=== PATIENT | female | born 1945 | race Caucasian/White ===

== ENCOUNTER → 2018-04-19 | Outpatient (CLI) | payer MEDICARE, BC ==
[2018-04-19 14:52] VITALS: PULSE 67; RESP 14; TEMP 97.4; BMI 31.3
--- NOTE | 2018-04-19 15:28 | P.GSHP ---
History of Present Illness H&P Date: 04/19/18 The patient is a 73-year-old white female who presents for evaluation secondary to a stereotactic core biopsy of the right breast which revealed a grade 1 invasive ductal carcinoma. The patient had a routine screening mammogram performed on 03/27/2018. At that time there was some grouped calcifications which were felt to possibly as being associated with a density increasing in size from a comparison study. She subsequently had an additional mammogram which revealed a 7 mm area with internal pleomorphic calcifications in the upper outer quadrant of the right breast and an ultrasound performed which did not show any specific nodule of concern. Based on the radiographic findings underwent a stereotactic core biopsy on 04/11/2018. The pathology from this revealed a grade 1 invasive ductal carcinoma. The patient herself has not felt any masses or nodules in her breasts. She has no nipple discharge or skin changes. She has no history of any trauma or infection in the breast. Family history: 1. mother: bilateral breast cancer first dx. at 65 2. maternal first cousin: breast cancer in her 60's 3. maternal first cousin: lung cancer 4. daughter: cervical cancer Hormonal History: menarche: 15 : 5, live births 3, first at 21, breast fed: no menopause: 58 BCP: 6 years hormones: 4 years ( took bio-identical) Past surgical history: 1. Back 2. Bilateral carpal tunnel 3. Bilateral breast biopsy in operating room at [facility] 4. stero biopsy of the right breast Past medical history: 1. Spinal stenosis Social History: smoke: none alcohol: none drugs: none - Constitutional Constitutional: Denies chills, Denies fever - EENT Comment: wears glasses, cataracts bilateral Eyes: bilateral decreased vision Ears: bilateral: tinnitus (right worse than left), deny: decreased hearing Ears, nose, mouth and throat: Denies headache, Denies sore throat - Breasts Breasts: bilateral: as per HPI - Cardiovascular Comment: High cholesterol Cardiovascular: Reports high blood pressure - Respiratory Respiratory: Denies cough, Denies 7 - Gastrointestinal Gastrointestinal: Reports constipation - Genitourinary (Female) Comment: UTI recently diagnosed Genitourinary: Denies dysuria, Denies hematuria - Menstruation Menstruation: Reports postmenopausal - Musculoskeletal Comment: arthritis - Integumentary Integumentary: Denies pruritus, Denies rash - Neurological Neurological: Denies numbness, Denies weakness - Psychiatric Psychiatric: Denies anxiety, Denies depression - Endocrine Endocrine: Denies fatigue, Denies weight change - Hematologic/Lymphatic Comment: none - Allergic/Immunologic Allergic/Immunologic: Reports seasonal allergies Past Medical History Past Medical History: Hyperlipidemia, Hypertension, Osteoarthritis (OA) History of Any Multi-Drug Resistant Organisms: None Reported Past Surgical History: Back Surgery, Breast Surgery, Orthopedic Surgery Additional Past Surgical History / Comment(s): LUMBAR SURGERY. BILATERAL BREAST BX (NEG). BILATERAL CARPAL TUNNEL. Past Anesthesia/Blood Transfusion Reactions: Motion Sickness Smoking Status: Never smoker Past Alcohol Use History: None Reported Past Drug Use History: None Reported Medications and Allergies Home Medications Medication Instructions Recorded Confirmed Type Alpha Lipoc Acid 1 tab PO DAILY 05/19/16 History Aspirin [Adult Low Dose Aspirin EC] 81 mg PO DAILY 05/19/16 05/19/16 History Biotin Unknown Dose 400 mg PO DAILY 05/19/16 History Cholecalciferol [Vitamin D3] 2,000 unit PO DAILY 05/19/16 05/19/16 History L.acidoph,Paracasei, B.lactis 1 tab PO DAILY 05/19/16 05/19/16 History [Probiotic] Lisinopril 10 mg PO HS 05/19/16 05/19/16 History [place]-3 Fatty Acids [[place]-3] 1,000 mg PO DAILY 05/19/16 05/19/16 History Polyphenol Dose Unknown 300 mg PO DAILY 05/19/16 History Pravastatin Sodium 40 mg PO HS 05/19/16 05/19/16 History Ubidecarenone [Co Q-10] 200 mg PO DAILY 05/19/16 05/19/16 History B Complex-Vit C-Vit E-Zinc [Z-Bec] 1 tab PO DAILY 04/19/18 04/19/18 History Loratadine [Claritin] 10 mg PO DAILY PRN 04/19/18 04/19/18 History Allergies Allergy/AdvReac Type Severity Reaction Status Date / Time codeine Allergy Rash/Hives Verified 04/19/18 14:38 Surgical - Exam - General well developed, well nourished, no distress - Eyes normal ocular movement - ENT no hearing loss, no congestion - Neck no masses, trachea midline - Respiratory normal expansion, normal respiratory effort, clear to auscultation - Cardiovascular Rhythm: regular Heart Sounds: normal: S1, S2 - Abdomen Abdomen: soft, non tender, no guarding, no rigid, no rebound - Integumentary no rash, no abnormal pigmentation - Neurologic no disoriented, no combative - Musculoskeletal normal gait, normal posture - Psychiatric oriented to time, oriented to person, oriented to place, speech is normal, memory intact Breast examination: Right breast: Multi-positional exam no dominant masses or nodules of concern, mild ecchymosis related to recent stereotactic core biopsy Right axilla: No adenopathy of concern Left breast: Multi-positional examination no dominant masses or notches of concern Left axilla: No adenopathy of concern Results Radiographic reports reviewed Assessment and Plan Assessment: Impression: 1. Right breast 7 mm invasive ductal carcinoma 2. Hypertension 3. High cholesterol 4. Recent urinary tract infection 5. spinal stenosis Plan: 1. Right breast needle localization lumpectomy sentinel node injection, sentinel node biopsy possible axillary node dissection 2. Recent urinary tract infection will repeat UA next week 3. Medical management of medical conditions Risk and benefits of surgical intervention have been discussed with the patient. Options including lumpectomy plus or minus radiation therapy as well as mastectomy plus or minus reconstruction have been discussed with the patient. [place] node I Apsey plus or minus axillary node dissection with risk and benefits have been discussed with the patient. The patient understands and wishes to proceed with needle localization lumpectomy, sentinel node injection, sentinel node biopsy possible axillary node dissection. She understands that if margins are positive or the sentinel node is positive on permanent section and it may be necessary to go back for repeat surgical resection. Cc: Dr. Shah
== END | disposition home or self-care (01) ==
LOC: WWCWWP 14:29
PROVIDERS: ATTEND Surgery
DX: Z53.9 Procedure and treatment not carried out, unspecified reason (principal)

== ENCOUNTER → 2018-05-14 | Day surgery (SDC) | payer MEDICARE, BC ==
[2018-05-07 14:51] VITALS: BMI 30.9
[~2018-05-14] MED LIST: ALPRAZolam 0.25 MG TAB PO ONE; DEXAMETHASONE SOD PHOSPHATE 10 MG/ML 1 ML VIAL IV ONE; HEPARIN SODIUM,PORCINE 5,000 UNIT/ML 1 ML VIAL SQ ONE; HYDROmorphone 1 MG/ML 1 ML SYRINGE IVP PRN; LACTATED RINGERS 1,000 ML IV ONE; LIDOCAINE 1% 20 ML VIAL (10MG/ML) FOR IV START INTRADERMA PRN; LIDOCAINE 1% INJ 10MG/ML (20 ML MDV) ONE; LIDOCAINE 1% INJ 10MG/ML (20 ML MDV) SQ ONE; MIDAZOLAM 2 MG/2 ML VIAL IV PRN; MIDAZOLAM 2 MG/2 ML VIAL ONE; ONDANSETRON 4 MG/2 ML VIAL IVP ONE; PROPOFOL 10 MG/ML 20 ML VIAL IV ONE; Pre Op ABX Message 1 EACH MISC MISCELLANE ONE; ROPIVACAINE 5 MG/ML 30 ML VIAL ONE; SCOPOLAMINE 1.5MG/72HR PATCH TRANSDERM ONE; SODIUM BICARB 4% 5 ML VIAL (0.48 MEQ/ML) MISCELLANE ONE; SUCCINYLCHOLINE CHLORIDE VIAL 200 MG/10 ML VIAL IV ONE; ePHEDrine SULFATE/0.9% NACL/PF 50 MG/5 ML SYRINGE IV ONE; fentaNYL (PF) 50 MCG/ML 2 ML AMP ONE
[2018-05-14] MEDS: LACTATED RINGERS 1,000 ML IV SCH ×2 (10:54→13:33)
--- NOTE | 2018-05-14 13:09 | NM ---
EXAMINATION TYPE: NM sentinel node injection DATE OF EXAM: 05/14/2018 COMPARISON: NONE HISTORY: Right breast cancer TECHNIQUE AND FINDINGS: The procedure of sentinel lymph node injection was explained to the patient. The benefits, alternatives, and risks were discussed. An informed consent was then obtained. Overlying skin is cleaned with sterile alcohol. Following this, 483 uCi [id number] Tilmanocept was inject ed in the upper outer aspect of the right nipple intradermally. The patient tolerated the procedure well without any immediate complication. The patient was kept in the radiology department for short stay after the procedure and then taken to surgery for surgical p rocedure what is presumed intraoperative gamma probe will be used for sentinel lymph node detection. IMPRESSION: Right breast radiotracer injection for sentinel node localization as above.
--- NOTE | 2018-05-14 13:14 | P.ONQ ---
Anesthesiology Proc Note - PNB - Peripheral Nerve Block Performed Right Other (see comment) Single Time Out Performed: Yes (pec1 and pec2) Indication: Acute Post-Operative Pain, Requested by physician Sedation Type: Sedate with meaningful contact maintained Preparation: Sterile Prep Position: Supine Needle Size: 50mm (2") Needle Gauge: 21 Technique: Ultrasound Injectate: 0.5% Ropivacaine (see comment for volume) (ropi .5% 10cc each) Blood Aspirated: No Pain Paresthesia on Injection Noted: No Resistance on Injection: Normal Events: Uneventful and Well Tolerated
--- NOTE | 2018-05-14 13:18 | P.NAPBC ---
NAPBC Queries - NAPBC Queries Was patient's case review presented at [facility] tumor board? If no, comment.: Yes Was patient's pathology reviewed at [facility]? If no, comment.: Yes Was breast conservation surgery offered? If no, comment.: Yes Was sentinel node biopsy offered? If no, comment.: Yes Was diagnosis confirmed by percutaneous core biopsy? If no, comment.: Yes If mastectomy patient, was a preop referral to a reconstructive surgeon offered? : Yes
--- NOTE | 2018-05-14 15:47 | MM ---
EXAMINATION TYPE: MG pre op needle loc RT, MG surgical specimen RT DATE OF EXAM: 05/14/2018 COMPARISON: Outside images of 03/27/2018 through 04/11/2018. CLINICAL HISTORY: Right breast cancer with request for preoperative needle localization. TECHNIQUE: Needle localization with wire placement and surgical excision of the biopsy proven right breast carcinoma marked by the top patchy biopsy marker in the upper outer quadrant of the right breast. FINDINGS: The procedure of needle localization with wire placement and than surgical excision was explained to the patient. Benefits, alternatives, and risks were discussed. An informed consent was then obtained. Preprocedural timeout was performed. The shortest pathway for procedure was chosen. Shortest pathway was lateral to medial approach. The overlying skin was prepped and draped in usual sterile fashion. 10 cc of lidocaine buffered with bicarbonate was used as anesthetic into the skin and subcutaneous tissue up to the level of area of concern. A 7 cm needle was used. It was placed via a lateral to medial approach under mammographic guidance. Subsequent 90 degrees mammogram show the needle to be in satisfactory position relative to the targeted area. At this point, wire was placed and the needle was withdrawn. The wire was fixed to patient's skin. Images were marked for surgeon. The patient tolerated the procedure well without any immediate complication. The patient was kept in the radiology department for short stay after the procedure and then taken to surgery for surgical excision. Targeted biopsy marker and wire are identified in specimen mammogram. The patient was kept in hospital for short stay after the procedure and then discharged home in stable condition. IMPRESSION: Successful, uncomplicated needle localization with wire placement and surgical excision of targeted biopsy marker representing the biopsy-proven right breast carcinoma, full pathology results to follow. Pathology Results: Malignant A. RIGHT BREAST, ORIENTED LUMPECTOMY: Focal residual 0.6 x 0.4 x 0.5 cm in greatest dimension infiltrating well differentiated (grade 1) infiltrating ductal carcinoma (tubular carcinoma). Residual carcinoma, adjacent to prior biopsy site measures 0.7 mm from the black inked superior soft tissue margin of resection. See Surgical Pathology Cancer Case Summary. B. SENTINEL LYMPH NODE #1, BIOPSY: Lymph node negative for metastatic adenocarcinoma by H+E as well as appropriately controlled immunohistochemical studies for Cytokeratin 7 and ALBERT. C. AXILLARY CONTENTS, DISSECTION: Benign fibroadipose tissue. D. SENTINEL LYMPH NODE #2, BIOPSY: Single lymph node, negative for metastatic adenocarcinoma by routine H+E as well as appropriately controlled immunohistochemical studies for Cytokeratin 7 and ALBERT. E. SENTINEL LYMPH NODE #3, BIOPSY: Single lymph node, negative for metastatic adenocarcinoma by routine H+E as well as appropriately controlled immunohistochemical studies for Cytokeratin 7 and ALBERT. F. SENTINEL LYMPH NODE #4, BIOPSY: Fibroadipose tissue negative for metastatic adenocarcinoma by routine H+E as well as appropriately controlled immunohistochemical studies for Cytokeratin 7 and ALBERT. G. ANTERIOR MARGIN OF RIGHT BREAST, EXCISION: Benign skin overlying fibrous breast parenchyma, negative for adenocarcinoma. H. NEW ANTERIOR SURFACE OF RIGHT BREAST: Benign fibroadipose tissue, negative for adenocarcinoma. Recommendation Surgical consult of the right breast. MTDD
--- NOTE | 2018-05-14 15:52 | P.OP ---
Date of Procedure: 05/14/18 Preoperative Diagnosis: Right breast cancer, invasive ductal carcinoma Postoperative Diagnosis: Same Procedure(s) Performed: Right breast sentinel node biopsy, right lumpectomy, BioSorb placement, onco- plastic tissue transfer Anesthesia: MICA Surgeon: Madelaine Huizar Estimated Blood Loss (ml): 20 IV fluids (ml): 700 Pathology: other (breast tissue) Condition: stable Disposition: PACU Indications for Procedure: 73-year-old with biopsy-proven right breast cancer, invasive ductal Operative Findings: Dense breast tissue Description of Procedure: The patient is a 73-year-old white female who was noted to have a mammographic abnormality in the right breast. Core biopsy revealed invasive ductal carcinoma. After discussion she opted for a lumpectomy and sentinel node biopsy. Patient was brought to the operating room and following induction of general anesthesia the right breast and right arm were prepped and draped in a sterile fashion. The [place] counter was used to identify the area still greatest radioactivity in the axilla. An incision was made over the site. Approximately 4 lymph nodes were identified which were radioactive. All were removed using sharp dissection and the Harmonic scalpel. The first lymph node had a 10 second count of over 29,000. The second lymph node had a 10 second count of 426, the third 1918, and the fourth 255. The 10 second background count was 34. After assured that hemostasis was attained the wound was well irrigated. The deep tissues were closed using 3-0 Vicryl suture. The lymph nodes appeared to be soft and of minimal suspicion and therefore frozen section was not obtained. No additional palpable lymph nodes of concern were identified. The axilla was closed in layers. The deep layer was closed with 3-0 Vicryl suture. The skin was closed with 4-0 Monocryl. The area of the right breast was approached. Circumareolar incision was made. A curvilinear incision superior to this was created. The tissue between the 2 incisions was de-epithelialized and the skin removed. Deep dissection was then performed at the superior incision down to the area of the hook of the needle. Surrounding tissue was excised. The tissue was painted for orientation. After assured that hemostasis was attained the wound was well irrigated. Specimen was sent for radiology and it was confirmed at the area of concern about removed. Dissection was carried down posteriorly to the pectoralis muscle. Additional tissue was taken anteriorly and painted for orientation. After we were assured that hemostasis was attained a BioSorb sizer was utilized. A 3 x 3 BioSorb was chosen. This was placed and secured using 3-0 Vicryl suture. Onco-plastic tissue transfer was performed. Approximately 8 cm x 4 cm of tissue was mobilized. The deep tissues were closed using 3-0 Vicryl suture. The skin was closed using 4-0 Monocryl. All instrument and sponge counts were correct at the end of the case. The patient tolerated procedure in stable condition.
--- NOTE | 2018-05-14 15:54 | P.DS ---
Providers Attending physician: Madelaine Huizar Primary care physician: Tristian Shah Plan - Discharge Summary Discharge Rx Participant: No New Discharge Prescriptions: No Action Aspirin [Adult Low Dose Aspirin EC] 81 mg PO DAILY Pravastatin Sodium 40 mg PO HS Lisinopril 10 mg PO HS Alpha Lipoc Acid 400 mcg PO QAM Cholecalciferol [Vitamin D3] 2,000 unit PO BID L.acidoph,Paracasei, B.lactis [Probiotic] 1 tab PO BID [place]-3 Fatty Acids [[place]-3] 1,000 mg PO QID Polyphenol Dose Unknown 120 mg PO QAM Ubidecarenone [Co Q-10] 200 mg PO QAM B Complex-Vit C-Vit E-Zinc [Z-Bec] 1 tab PO DAILY Loratadine [Claritin] 10 mg PO DAILY PRN PRN Reason: Allergy Symptoms Biotin 10,000 mcg PO DAILY Discharge Medication List Alpha Lipoc Acid 400 mcg PO QAM 05/19/16 [History] Aspirin [Adult Low Dose Aspirin EC] 81 mg PO DAILY 05/19/16 [History] Cholecalciferol [Vitamin D3] 2,000 unit PO BID 05/19/16 [History] L.acidoph,Paracasei, B.lactis [Probiotic] 1 tab PO BID 05/19/16 [History] Lisinopril 10 mg PO HS 05/19/16 [History] [place]-3 Fatty Acids [[place]-3] 1,000 mg PO QID 05/19/16 [History] Polyphenol Dose Unknown 120 mg PO QAM 05/19/16 [History] Pravastatin Sodium 40 mg PO HS 05/19/16 [History] Ubidecarenone [Co Q-10] 200 mg PO QAM 05/19/16 [History] B Complex-Vit C-Vit E-Zinc [Z-Bec] 1 tab PO DAILY 04/19/18 [History] Loratadine [Claritin] 10 mg PO DAILY PRN 04/19/18 [History] Biotin 10,000 mcg PO DAILY 05/07/18 [History] Follow up Appointment(s)/Referral(s): Madelaine Huizar MD [STAFF PHYSICIAN] - 1 Week Activity/Diet/Wound Care/Special Instructions: do not drive today may shower after 48 hours wear bra at all times if not showering Discharge Disposition: HOME SELF-CARE
[2018-05-14 16:16] VITALS: TEMP 96.9
[2018-05-14 17:05] VITALS: RESP 18
[2018-05-14 18:06] VITALS: BP 133/76; PULSE 78
== END | disposition home or self-care (01) ==
LOC: OR 09:25
PROVIDERS: ATTEND Surgery
DX: Z80.3 Family history of malignant neoplasm of breast (principal); Z80.1 Family history of malignant neoplasm of trachea, bronchus and lung; Z80.49 Family history of malignant neoplasm of other genital organs; E78.5 Hyperlipidemia, unspecified; I10 Essential (primary) hypertension; M19.90 Unspecified osteoarthritis, unspecified site; Z79.82 Long term (current) use of aspirin; Z79.899 Other long term (current) drug therapy; Z88.5 Allergy status to narcotic agent; C50.911 Malignant neoplasm of unspecified site of right female breast
CPT/HCPCS: 19301; 38525; 15777; 64450; 88342; 88307; 88341; 76098; 19281; 38792; A4648; A9520; J2250; J0330; J1644; J1100; J2405; J2001; J3010; J2795; J2704

== ENCOUNTER → 2018-05-23 | Outpatient (CLI) | payer MEDICARE, BC ==
[2018-05-23 11:33] VITALS: BP 142/65; PULSE 69; RESP 19; TEMP 96.3; BMI 30.9
--- NOTE | 2018-05-23 11:58 | P.PN ---
Progress Note - Text Progress Note Date: 05/23/18 Patient is postop right breast lumpectomy with sentinel node biopsy. Postoperatively the patient has done well. Her final pathology revealed the lesion to be a T1b N0 M0 lesion. All margins are negative for invasive cancer. The patient is following with radiation as well as medical oncology. She has no complaints related to pain. Physical examination: Lungs: Clear Heart: Regular rate and rhythm Examination of the right breast incision clean and dry Exit examination of the right axillary incision clean and dry Impression: 1. T1 be N0 M0 right breast cancer 2. Patient doing well postoperatively Plan: 1. Follow-up radiation oncology 2. Follow-up medical oncology 3. Follow-up Dr. Allen 3 months CC: Dr. Shah
== END | disposition home or self-care (01) ==
LOC: WWCWWP 10:58
PROVIDERS: ATTEND Surgery
DX: Z53.9 Procedure and treatment not carried out, unspecified reason (principal)

== ENCOUNTER → 2018-07-04 | Outpatient (CLI) | payer MEDICARE, BC ==
--- NOTE | 2018-07-04 12:08 | BD ---
EXAMINATION TYPE: Axial Bone Density DATE OF EXAM: 07/04/2018 CLINICAL HISTORY: Height: 62.5 Weight: 174 FRAX RISK QUESTIONS: Alcohol (3 or more units per day): no Family History (Parent hip fracture): no Glucocorticoids (More than 3mos): no (Ex: prednisone, prednisolone, methylprednisolone, dexamethasone, and hydrocortisone). History of Fracture in Adulthood: no Secondary Osteoporosis: 1. Type 1 Diabetes: no 2. Hyperthyroidism: no 3. Menopause before 45: no 4. Malnutrition: no 5. Chronic liver disease: no Rheumatoid Arthritis: no Current Tobacco Use: no RISK FACTORS HISTORY OF: Surgery to Spine: yes When: about age 24...patient unsure what procedure was; however patient thinks she may have lost heig ht ever since that surgery Family History of Osteoporosis: not to knowledge of patient Active: yes Diet low in dairy products/other sources of calcium: no Postmenopausal woman: yes Take estrogen and/or progesterone medications: not now How long: did take Bio-Identical Hormones Lost more than 2 inches in height since high school: possibly, states height was perhaps once about 6 5 inches tall Frequent falls: no Poor Health: just diagnosed with breast CA, otherwise in good health Hyperparathyroidism: no Adrenal Insufficiency: no MEDICATIONS: Prednisone or other steroids: no Thyroid Medications: no Osteoporosis Medications: no Additional Medications: just started on an antineoplastic Additional History: Breast CA 2017; history of back injury 2007 EXAM MEASUREMENTS: Bone mineral densitometry was performed using the Avtal24 System. Bone mineral density as measured about the Lumbar spine is: ----- L1-L4(G/cm2): 1.101 T Score Values are as follows: ----- L2: -1.6 ----- L3: 0.2 ----- L4: 0.3 ----- L1-L4: -0.7 Bone mineral density not previously done at this facility; previous at another hospital & at physicia n office Bone mineral density about the R hip (g/cm2): 0.937 Bone mineral density about the L hip (g/cm2): 0.987 T Score values are as follows: -----R Neck: -0.7 -----L Neck: -0.4 -----R Total: -0.1 -----L Total: 0.1 Bone mineral density not previously done at this facility; previous at another hospital & at physicia n office Bone mineral density about the L Wrist (g/cm2): 0.653 T Score values are as follows: -----Dist. R+U: -0.4 -----Prox. R+U: -0.8 -----Radius total: -0.4 Bone mineral density not previously done at this facility IMPRESSION: No evidence for osteoporosis or osteopenia. NOTE: T-SCORE=SD OF THE YOUNG ADULT MEAN.
== END ==
LOC: RADBDWWP 08:19
PROVIDERS: ATTEND Internal Medicine Hematology & Oncology
DX: C50.411 Malignant neoplasm of upper-outer quadrant of right female breast (principal); Z88.5 Allergy status to narcotic agent
CPT/HCPCS: 77080

== ENCOUNTER → 2018-08-22 | Outpatient (CLI) | payer MEDICARE, BC ==
[2018-08-22 12:50] VITALS: BP 134/69; PULSE 69; RESP 16; TEMP 97.1; BMI 30.9
--- NOTE | 2018-08-22 13:31 | P.PN ---
Subjective Progress Note Date: 08/22/18 Principal diagnosis: Right breast stage I breast cancer last surgery April 2018 Inés is a 73-year-old white female who is status post right breast lumpectomy with sentinel node biopsy in April 2018. The patient was noted to have a T1b N0 M0 lesion. She was seen postprocedure by radiation and medical oncology. She is presently on Arimidex. She opted for no radiation therapy. The patient has no complaints at this time related to her surgery. Patient has no lumps or masses in her breast. The patient has no complaints of any nipple discharge or skin changes of concern. The patient's last bilateral mammogram was in March. The patient will be due for a right breast mammogram in 3 months. Objective - Vital Signs Vital signs: Vital Signs Temp 97.1 F L 08/22/18 12:44 Pulse 69 08/22/18 12:44 Resp 16 08/22/18 12:44 BP 134/69 08/22/18 12:44 Pulse Ox 98 08/22/18 12:44 Intake & Output 08/21/18 08/22/18 08/22/18 18:59 06:59 18:59 Weight 79.379 kg - Exam BMI 31 - Constitutional General appearance: Present: obese - EENT Eyes: Present: EOMI ENT: Present: hearing grossly normal - Neck Neck: Present: normal ROM - Respiratory Respiratory: bilateral: CTA - Cardiovascular Rhythm: regular Heart sounds: normal: S1, S2 - Gastrointestinal General gastrointestinal: Present: soft - Integumentary Integumentary: Present: normal turgor - Psychiatric Psychiatric: Present: A&O x's 3, appropriate affect, intact judgment & insight - Additional findings Additional findings: Breast examination: Right breast: Well-healed scars from prior surgery, multiple positional exam no dominant masses or nodules of concern, no evidence of any recurrent disease Right axilla: No adenopathy of concern Left breast: Multiple positional exam no dominant masses or nodules of concern Left axilla: No adenopathy of concern Assessment and Plan Assessment: Impression: 1. Patient status post right breast lumpectomy sentinel node biopsy for a T1b N0 M0 right breast cancer 2. Fibrocystic breast changes Plan: 1. Right breast mammogram and physician exam in 3 months 2. Patient to follow up sooner if she has any lesions or questions of concern Cc: Dr. Shah
== END ==
LOC: WWCWWP 12:15
PROVIDERS: ATTEND Surgery
DX: Z53.9 Procedure and treatment not carried out, unspecified reason (principal)

== ENCOUNTER → 2018-11-28 | Outpatient (CLI) | payer MEDICARE, BC ==
[2018-11-28 12:59] VITALS: BP 141/61; PULSE 69; RESP 20; TEMP 98.1; BMI 30.1
--- NOTE | 2018-11-28 13:40 | P.PN ---
Subjective Progress Note Date: 11/28/18 Principal diagnosis: Prior to stage I right breast cancer Gladis is a 73-year-old white female who is status post right breast lumpectomy with sentinel node biopsy in April 2018. The patient had a T1b N0 M0 lesion. She was seen postprocedure by radiation oncology and medical oncology. She is presently on a random attacks. She opted for no radiation therapy. She had a repeat right breast mammogram performed 561. The radiograph is felt to be a BIRADS 3 and repeat her breast mammogram in 6 months is recommended. The patient does not feel of concern in her breast. No nipple discharge or skin changes. Family History: 1. mother: bilateral breast cancer, liver cancer 2. maternal first cousin: breast 3. maternal first cousin: lung 4. daughter: cervical cancer Hormonal History: menarche: e15 , 2 miscarrages, breast fed: yes, first born at 21 menopause: 58 BCP: 5 years hormones: bio-identical 1 year Past Surgical History: 1. Bilateral carpal tunnel 2. Right breast lumpectomy with sentinel node biopsy 3. Lumbar back surgery Past medical history: 1. HTN 2. high cholesterol Social History: smoke: none alcohol: none drugs: none Review of systems: HEENT: Wears glasses, tinnitus, blurred vision Lungs:none heart: HTN GI: none : none Musculoskeletal: Arthritis Neurologic:none integument: none Psychiatric: Negative ALLERGIES: seasonal allergies Objective - Vital Signs Vital signs: Vital Signs Temp 98.1 F 11/28/18 12:46 Pulse 69 11/28/18 12:46 Resp 20 11/28/18 12:46 BP 141/61 11/28/18 12:46 Pulse Ox 96 11/28/18 12:46 Intake & Output 11/27/18 11/28/18 11/28/18 18:59 06:59 18:59 Weight 77.111 kg - Exam BMI 30.1 - Constitutional General appearance: Present: average body habitus, cooperative - EENT Eyes: Present: EOMI ENT: Present: hearing grossly normal - Neck Neck: Present: normal ROM - Respiratory Respiratory: bilateral: CTA - Cardiovascular Rhythm: regular Heart sounds: normal: S1, S2 - Gastrointestinal Gastrointestinal Comment(s): no guarding or rebound General gastrointestinal: Present: soft - Integumentary Integumentary: Present: normal turgor - Musculoskeletal Musculoskeletal: Present: gait normal - Psychiatric Psychiatric: Present: A&O x's 3, appropriate affect, intact judgment & insight - Additional findings Additional findings: breast exam: right breast: Multiple positional exam no dominant masses or nodules of concern, well-healed scar from prior surgery, the breast is asymmetric to the contralateral breast secondary to her surgery. The patient has decreased ptosis on the right side related to the left side. Right axilla: No adenopathy of concern Left breast: Multi-positional exam no dominant masses or nodules of concern. Asymmetry with increased ptosis on the left side, slightly increased nodularity at the 12 o'clock position of the left breast Left axilla: No adenopathy of concern Assessment and Plan Assessment: Impression: 1. Status post right breast lumpectomy, no evidence of recurrent cancer 2. Hypertension 3. High cholesterol 4. Spinal stenosis 5. Nodularity left breast 12 o'clock position Plan: 1. FNA area of concern in the left breast 2. Conditions 3. Follow-up 1 week after FNA performed in the left breast CC:Dr. Shah
--- NOTE | 2018-11-28 13:49 | P.OP ---
Date of Procedure: 11/28/18 Preoperative Diagnosis: nodule left breast at 12 O'clock Postoperative Diagnosis: same Procedure(s) Performed: FNA of left breast Surgeon: Madelaine Huizar Estimated Blood Loss (ml): 0 Pathology: other (FNA cytology) Condition: stable Disposition: same day Indications for Procedure: nodularity at 12 left breast Operative Findings: dense breast tissue Description of Procedure: The patient is noted to have some increased nodularity 12 o'clock position of the left breast. After prepping with alcohol a 22-gauge needle on a 10 mL syringe is used to pass the needle into the area of concern. Multiple passes are made in this cytology is obtained. The specimen was handed off and the specimen prepped and sent for cytology. The patient handled the procedure in stable condition.
== END | disposition home or self-care (01) ==
LOC: WWCWWP 12:29
PROVIDERS: ATTEND Surgery
DX: N63.0 Unspecified lump in unspecified breast (principal)
CPT/HCPCS: 88108

== ENCOUNTER → 2018-12-26 | Outpatient (CLI) | payer MEDICARE, BC ==
[2018-12-26 08:52] VITALS: BP 144/75; PULSE 64; RESP 16; TEMP 97.7; BMI 30.1
--- NOTE | 2018-12-26 09:10 | P.PN ---
Subjective Progress Note Date: 12/26/18 Principal diagnosis: Stage I right breast cancer status post lumpectomy patient currently on Arimidex Gladis is a 73-year-old white female who is status post right breast lumpectomy with sentinel node biopsy in April 2018. The patient had a TIAGO on the N0 M0 lesion. She was seen postprocedure by radiation oncology and medical oncology. She is presently on Arimidex. She opted for no radiation therapy. She had repeat right breast mammogram performed 561. The radiograph is a BIRADS 3 and repeat mammogram in 6 months time is recommended. Her last left breast mammogram was in March 2018, and did not show any lesions of concern. The patient does have some concerns regarding asymmetry of the breast since her procedure. The patient underwent cystoscopy was noted to have some mild nodularity in the left breast and an FNA was performed. FNA revealed of fibrofa tty tissue and no lesions of concern. Family history: 1. Mother: Bilateral breast cancer, liver cancer 2. Maternal first cousin: Breast cancer 3. Maternal first cousin: Lung cancer 4. Data: Cervical cancer Hormonal history: Menarche: 15 , 2 miscarriages, breast-fed: Yes, Menopause: 58 control pills: 5 years Hormones: Bioidentical for 1 year Past surgical history: 1. Bilateral carpal tunnel 2. Right breast lumpectomy with sentinel node biopsy 2. Lumbar back surgery Past medical history: 1. Hypertension 2. High cholesterol Social history: Smoking: Negative Alcohol: Negative Drugs: Negative Review of systems: HEENT: Wears glasses, tinnitus, blurred vision Lungs: Negative Heart: Hypertension GI: Negative : Negative Musculoskeletal: Arthritis Neurologic: Negative Integument: Negative Psychiatric: Negative ALLERGIES: Seasonal ALLERGIES Objective - Vital Signs Vital signs: Vital Signs Temp 97.7 F 12/26/18 08:40 Pulse 64 12/26/18 08:40 Resp 16 12/26/18 08:40 BP 144/75 12/26/18 08:40 Pulse Ox 97 12/26/18 08:40 - Constitutional General appearance: Present: average body habitus - EENT Eyes: Present: EOMI ENT: Present: hearing grossly normal - Neck Neck: Present: normal ROM - Respiratory Respiratory: bilateral: CTA - Cardiovascular Rhythm: regular - Gastrointestinal General gastrointestinal: Present: soft - Integumentary Integumentary: Present: normal turgor - Musculoskeletal Musculoskeletal: Present: gait normal - Psychiatric Psychiatric: Present: A&O x's 3, appropriate affect, intact judgment & insight Assessment and Plan Assessment: Impression: 1. Status post right breast lumpectomy, no evidence of recurrent cancer 2. Hypertension 3. High cholesterol 4. Spinal stenosis 5. FNA left breast benign, will recommend mammogram 6. Asymmetry of the breast status post lumpectomy patient wishes procedures for asymmetry Plan: 1. Mammogram of the left breast 2. Have given the patient the option of plastic surgery however she does not wish to travel 3. We will see patient after mammogram CC: Dr. Shah
== END | disposition home or self-care (01) ==
LOC: WWCWWP 08:38
PROVIDERS: ATTEND Surgery
DX: Z53.9 Procedure and treatment not carried out, unspecified reason (principal)

== ENCOUNTER → 2019-02-07 | Outpatient (CLI) | payer MEDICARE, BC ==
--- NOTE | 2019-02-07 09:33 | P.PN ---
Subjective Progress Note Date: 02/07/19 Stage I right breast cancer status post lumpectomy patient currently on Arimidex Gladis is a 73-year-old white female who is status post right breast lumpectomy with sentinel node biopsy in April 2018. The patient had a T1BN0 M0 lesion. She was seen postprocedure by radiation oncology and medical oncology. She is presently on Arimidex. She opted for no radiation therapy. She had repeat right breast mammogram performed 561. The radiograph is a BIRADS 3 and repeat mammogram in 6 months time is recommended. Her last left breast mammogram was in March 2018, and did not show any lesions of concern. The patient does have some concerns regarding asymmetry of the breast since her procedure. The patient had some mild nodularity in the left breast and an FNA was performed. FNA revealed of fibrofatty tissue and no lesions of concern. She had a repeat left breast mammogram on 01-15-19 which was felt to be benign BIRAD 2. It was recommended she have repeat bilateral mammogram in March to be back on schedule. Family history: 1. Mother: Bilateral breast cancer, liver cancer 2. Maternal first cousin: Breast cancer 3. Maternal first cousin: Lung cancer 4. Daughter: Cervical cancer Hormonal history: Menarche: 15 , 2 miscarriages, breast-fed: Yes, Menopause: 58 control pills: 5 years Hormones: Bioidentical for 1 year Past surgical history: 1. Bilateral carpal tunnel 2. Right breast lumpectomy with sentinel node biopsy 2. Lumbar back surgery Past medical history: 1. Hypertension 2. High cholesterol Social history: Smoking: Negative Alcohol: Negative Drugs: Negative Review of systems: HEENT: Wears glasses, tinnitus, blurred vision Lungs: Negative Heart: Hypertension, high cholesterol GI: Negative : Negative Musculoskeletal: Arthritis Neurologic: Negative Integument: Negative Psychiatric: Negative ALLERGIES: Seasonal ALLERGIES - Constitutional General appearance: Present: average body habitus - EENT Eyes: Present: EOMI ENT: Present: hearing grossly normal - Neck Neck: Present: normal ROM - Respiratory Respiratory: bilateral: CTA - Cardiovascular Rhythm: regular - Gastrointestinal General gastrointestinal: Present: soft - Integumentary Integumentary: Present: normal turgor - Musculoskeletal Musculoskeletal: Present: gait normal - Psychiatric Psychiatric: Present: A&O x's 3, appropriate affect, intact judgment & insight Objective - Vital Signs Vital signs: Vital Signs Temp 97.8 F 02/07/19 09:04 Pulse 69 02/07/19 09:04 Resp 16 02/07/19 09:04 BP 142/90 02/07/19 09:04 Pulse Ox 99 02/07/19 09:04 Intake & Output 02/06/19 02/07/19 02/07/19 18:59 06:59 18:59 Weight 77.111 kg - Constitutional General appearance: Present: average body habitus - EENT Eyes: Present: EOMI ENT: Present: hearing grossly normal - Neck Neck: Present: normal ROM - Respiratory Respiratory: bilateral: CTA - Cardiovascular Rhythm: regular Heart sounds: normal: S1, S2 - Gastrointestinal General gastrointestinal: Present: soft - Integumentary Integumentary: Present: normal turgor - Musculoskeletal Musculoskeletal: Present: gait normal - Psychiatric Psychiatric: Present: A&O x's 3, appropriate affect, intact judgment & insight - Additional findings Additional findings: Breast examination: Multiple positional exam well-healed scar no dominant masses or nodules of concern Right axilla: No adenopathy of concern left breast: Multiple positional exam no dominant masses or nodules of concern Left axilla: No adenopathy of concern Assessment and Plan Assessment: Impression: 1. Patient status post right breast lumpectomy no evidence of recurrent cancer, stage IA disease 2. Hypertension 3. Hypercholesterolemia 4. Spinal stenosis 5. Left breast fibrocystic changes recent mammogram BIRADS 2 6. The symmetry of the breast status post lumpectomy Plan: 1. Right breast mammogram in April with physician exam 2. At this time does not wish to have a procedure for asymmetry 3. Cholesterol management as per medicine 4. Medical management of medical conditions CC: Dr. Shah
== END ==
DX: Z53.9 Procedure and treatment not carried out, unspecified reason (principal)

== ENCOUNTER → 2019-04-17 | Outpatient (CLI) | payer MEDICARE, BC ==
--- NOTE | 2019-04-17 11:02 | MM ---
Reason for exam: additional evaluation requested from prior study. Last mammogram was performed 3 months ago. History: Patient is postmenopausal and has history of breast cancer at age 73. Family history of breast cancer in mother at age 65 and breast cancer in maternal cousin at age 60. Malignant MG pre op needle loc RT of the right breast, May 14, 2018. Lumpectomy of the right breast, May 14, 2018. Took antineoplastic for 9 months beginning at age 73. Took other hormone for 3 years beginning at age 58. Physical Findings: Nurse Summary: 0.5cm nodule in the left breast at 8 o'clock (nurse navdeep). MG 3D Diag Mammo W/Cad JANEL Bilateral CC and MLO view(s) were taken. Prior study comparison: January 15, 2019, left breast MG 3d diag mammo w/cad LT. April 11, 2018, mammogram. There are scattered fibroglandular densities. Finding: There are typically benign vascular calcifications. No suspicious abnormality. Right post therapy change. These results were verbally communicated with the patient and result sheet given to the patient on 04/17/19. ASSESSMENT: Benign, BI-RAD 2 RECOMMENDATION: Follow-up diagnostic mammogram of both breasts in 1 year.
== END | disposition home or self-care (01) ==
LOC: RADMAMWWP 09:38
PROVIDERS: ATTEND Surgery
DX: Z08 Encounter for follow-up examination after completed treatment for malignant neoplasm (principal); Z85.3 Personal history of malignant neoplasm of breast
CPT/HCPCS: 77066; G0279; 77062

== ENCOUNTER → 2019-04-25 | Outpatient (CLI) | payer MEDICARE, BC ==
[2019-04-25 14:24] VITALS: BP 137/77; PULSE 62; RESP 16; TEMP 94.7; BMI 30.1
--- NOTE | 2019-04-25 15:02 | P.PN ---
Subjective Progress Note Date: 04/25/19 Gladis is a 73-year-old white female who is status post right breast lumpectomy with sentinel node biopsy in April 2018. The patient had a T1 N0 M0 lesion. She was seen postprocedure by radiation oncology and medical oncology. She is presently on Arimidex. She opted for no radiation therapy. She had repeat right breast mammogram performed 5618. The patient does have some concerns regarding asymmetry of the breast since her procedure. The patient had a bilateral mammogram in and this was felt to be benign BIRADS 2 with follow-up mammogram of both breasts in 1 year. The patient does not feel anything which she is concerned about in her breast at this time. Family history: 1. Mother: Bilateral breast cancer, liver cancer 2. Maternal first cousin: Breast cancer 3. Maternal first cousin: Lung cancer 4. Daughter: Cervical cancer Hormonal history: Menarche: 15 , 2 miscarriages, breast-fed: Yes, Menopause: 58 control pills: 5 years Hormones: Bioidentical for 1 year Past surgical history: 1. Bilateral carpal tunnel 2. Right breast lumpectomy with sentinel node biopsy 2. Lumbar back surgery Past medical history: 1. Hypertension 2. High cholesterol Social history: Smoking: Negative Alcohol: Negative Drugs: Negative Review of systems: HEENT: Wears glasses, tinnitus, blurred vision Lungs: Negative Heart: Hypertension GI: Negative : Negative Musculoskeletal: Arthritis Neurologic: Negative Integument: Negative Psychiatric: Negative ALLERGIES: Seasonal ALLERGIES Objective - Vital Signs Vital signs: Vital Signs Temp 94.7 F L 04/25/19 14:16 Pulse 62 04/25/19 14:16 Resp 16 04/25/19 14:16 BP 137/77 04/25/19 14:16 Pulse Ox 100 04/25/19 14:16 Intake & Output 04/24/19 04/25/19 04/25/19 18:59 06:59 18:59 Weight 77.111 kg - Exam BMI 30.1 - Constitutional General appearance: Present: average body habitus - EENT Eyes: Present: EOMI ENT: Present: hearing grossly normal - Neck Neck: Present: normal ROM - Respiratory Respiratory: bilateral: CTA - Cardiovascular Rhythm: regular Heart sounds: normal: S1, S2 - Gastrointestinal General gastrointestinal: Present: soft - Integumentary Integumentary: Present: normal turgor - Musculoskeletal Musculoskeletal: Present: gait normal - Psychiatric Psychiatric: Present: A&O x's 3, appropriate affect, intact judgment & insight - Additional findings Additional findings: breast exam: right breast: Well-healed scar from prior surgery, multiple positional exam no dominant masses or nodules of concern right ailla: No adenopathy of concern Left breast: multipositional exam no dominate masses or nodules of concern left axilla: No adenopathy of concern right breast smaller than the left breast Assessment and Plan Assessment: impression: 1. Patient's [id number] right breast cancer no evidence of any recurrence 2. Fibrocystic breast changes 3. Bilateral mammogram BIRADS 2 [id number] 4. High cholesterol 5. Hypertension Plan: 1. Repeat physician exam in 6 months 2. Patient will consider if she wishes to have a symmetry procedure performed 3. Medical management of medical conditions
== END | disposition home or self-care (01) ==
LOC: WWCWWP 13:54
PROVIDERS: ATTEND Surgery
DX: Z53.9 Procedure and treatment not carried out, unspecified reason (principal)

== ENCOUNTER → 2020-04-30 | Outpatient (CLI) | payer MEDICARE, BC ==
--- NOTE | 2020-04-30 11:48 | MM ---
Reason for exam: additional evaluation requested from prior study. Last mammogram was performed 1 year ago. History: Patient is postmenopausal and has history of breast cancer at age 73. Family history of breast cancer in mother at age 65 and breast cancer in maternal cousin at age 60. Malignant MG pre op needle loc RT of the right breast, May 14, 2018. Lumpectomy of the right breast, May 14, 2018. Benign excisional biopsy of both breasts. Took estrogen for 3 years. Took progesterone for 3 years. Took antineoplastic for 2 years beginning at age 73. Took other hormone for 3 years beginning at age 58. Physical Findings: Nurse did not find any significant physical abnormalities on exam. MG 3D Diag Mammo W/Cad JANEL Bilateral CC and MLO view(s) were taken. Prior study comparison: April 17, 2019, bilateral MG 3d diag mammo w/cad JANEL. January 15, 2019, left breast MG 3d diag mammo w/cad LT. There are scattered fibroglandular densities. Post biopsy changes right breast 11-12 o'clock. No significant new findings when compared with previous films. These results were verbally communicated with the patient and result sheet given to the patient on 04/30/20. ASSESSMENT: Benign, BI-RAD 2 RECOMMENDATION: Follow-up diagnostic mammogram of both breasts in 1 year.
== END | disposition home or self-care (01) ==
LOC: RADMAMWWP 10:55
PROVIDERS: ATTEND Internal Medicine Hematology & Oncology
DX: Z08 Encounter for follow-up examination after completed treatment for malignant neoplasm (principal); Z85.3 Personal history of malignant neoplasm of breast
CPT/HCPCS: 77066; G0279; 77062

== ENCOUNTER → 2021-02-01 | Outpatient (CLI) | payer MEDICARE, BC ==
--- NOTE | 2021-02-01 10:47 | BD ---
EXAMINATION TYPE: Axial Bone Density DATE OF EXAM: 02/01/2021 COMPARISON: NONE CLINICAL HISTORY: Postmenopausal Height: 63 Weight: 168.5 FRAX RISK QUESTIONS: Alcohol (3 or more units per day): no Family History (Parent hip fracture): no Glucocorticoids (More than 3mos): no (Ex: prednisone, prednisolone, methylprednisolone, dexamethasone, and hydrocortisone). History of Fracture in Adulthood: no Secondary Osteoporosis: 1. Type 1 Diabetes: no 2. Hyperthyroidism: no 3. Menopause before 45: no 4. Malnutrition: no 5. Chronic liver disease: no Rheumatoid Arthritis: no Current Tobacco Use: no RISK FACTORS HISTORY OF: Surgery to Spine/Hip(right/left)/Wrist (right/left): spine surgery When: 1970 Family History of Osteoporosis: no Active: yes Diet low in dairy products/other sources of calcium: no Postmenopausal woman: age 59 Lost more than 2 inches in height since high school: just two inches MEDICATIONS: lisinopril, pravastatin, breast cancer hormone vic Additional History: EXAM MEASUREMENTS: Bone mineral densitometry was performed using the [employer] System. Bone mineral density as measured about the Lumbar spine is: ----- L1-L4(G/cm2): 1.036 T Score Values are as follows: ----- L2: -15 ----- L3: -0.3 ----- L4: -0.5 ----- L1-L4: -1.2 Bone mineral density has: decreased -4.9 % since study of: 07.04.2018 Bone mineral density about the R hip (g/cm2): 0.909 Bone mineral density about the L hip (g/cm2): 0.968 T Score values are as follows: -----R Neck: -0.9 -----L Neck: -0.5 -----R Total: -1.1 -----L Total: -0.5 Bone mineral density has: decreased -10.0 % since study of: 07.04.2018 Bone mineral density about the L Wrist (g/cm2): 0.567 T Score values are as follows: -----Dist. R+U: -1.9 -----Prox. R+U: -2.0 -----Radius total: -1.8 Bone mineral density has: decreased -12.9 % since study of: 07.04.2018 IMPRESSION: Osteopenia NOTE: T-SCORE=SD OF THE YOUNG ADULT MEAN.
== END | disposition home or self-care (01) ==
LOC: RADBDWWP 09:53
PROVIDERS: ATTEND Internal Medicine Hematology & Oncology
DX: M85.89 Other specified disorders of bone density and structure, multiple sites (principal)
CPT/HCPCS: 77080

== ENCOUNTER → 2021-04-21 | Outpatient (CLI) | payer MEDICARE, BC ==
--- NOTE | 2021-04-22 10:42 | MM ---
Reason for exam: additional evaluation requested from prior study. Last mammogram was performed 1 year ago. History: Patient is postmenopausal and has history of breast cancer at age 73. Family history of breast cancer in mother at age 65 and breast cancer in maternal cousin at age 60. Malignant MG pre op needle loc RT of the right breast, May 14, 2018. Lumpectomy of the right breast, May 14, 2018. Benign excisional biopsy of both breasts. Took estrogen for 3 years. Took progesterone for 3 years. Took antineoplastic for 2 years beginning at age 73. Took other hormone for 3 years beginning at age 58. Physical Findings: Nurse did not find any significant physical abnormalities on exam. MG 3D Diag Mammo W/Cad JANEL Bilateral CC and MLO view(s) were taken. Prior study comparison: April 30, 2020, bilateral MG 3d diag mammo w/cad JANEL. April 17, 2019, bilateral MG 3d diag mammo w/cad JANEL. January 15, 2019, left breast MG 3d diag mammo w/cad LT. There are scattered fibroglandular densities. Post surgical change right breast Biozorb device. Low density focal asymmetry posterior left upper outer quadrant is more defined on CC but unchanged on MLO view. 6 month follow up recommended. These results were verbally communicated with the patient and result sheet given to the patient on 04/21/21. ASSESSMENT: Probably benign, BI-RAD 3 RECOMMENDATION: Follow-up diagnostic mammogram of the left breast in 6 months. (3D)
== END | disposition home or self-care (01) ==
LOC: RADMAMWWP 14:12
PROVIDERS: ATTEND Internal Medicine Hematology & Oncology
DX: N64.89 Other specified disorders of breast (principal); Z80.3 Family history of malignant neoplasm of breast; Z78.0 Asymptomatic menopausal state
CPT/HCPCS: 77066; G0279; 77062

== ENCOUNTER → 2021-10-21 | Outpatient (CLI) | payer MEDICARE, BC ==
--- NOTE | 2021-10-25 12:26 | MM ---
Reason for exam: follow-up at short interval from prior study. Last mammogram was performed 6 months ago. History: Patient is postmenopausal and has history of breast cancer at age 73. Family history of breast cancer in mother at age 65 and breast cancer in maternal cousin at age 60. Malignant MG pre op needle loc RT of the right breast, May 14, 2018. Lumpectomy of the right breast, May 14, 2018. Benign excisional biopsy of both breasts. Took estrogen for 3 years. Took progesterone for 3 years. Took antineoplastic for 2 years beginning at age 73. Took other hormone for 3 years beginning at age 58. Physical Findings: A clinical breast exam by your physician is recommended on an annual basis and results should be correlated with mammographic findings. MG 3D Diag Mammo W/Cad LT CC and MLO view(s) were taken of the left breast. Prior study comparison: April 21, 2021, bilateral MG 3d diag mammo w/cad JANEL. April 30, 2020, bilateral MG 3d diag mammo w/cad JANEL. There are scattered fibroglandular densities. There is chronic nodularity in the right breast, stable. There is no new dominant lesion. Results were given to the patient verbally at the time of the exam. ASSESSMENT: Benign, BI-RAD 2 RECOMMENDATION: Routine screening mammogram of both breasts in 6 months.
== END | disposition home or self-care (01) ==
LOC: RADMAMWWP 10:53
PROVIDERS: ATTEND Internal Medicine Hematology & Oncology
DX: R92.8 Other abnormal and inconclusive findings on diagnostic imaging of breast (principal); Z85.3 Personal history of malignant neoplasm of breast; Z78.0 Asymptomatic menopausal state; Z80.3 Family history of malignant neoplasm of breast
CPT/HCPCS: 77065; G0279; 77061

== ENCOUNTER → 2022-04-27 | Outpatient (CLI) | payer MEDICARE, BC ==
--- NOTE | 2022-04-28 15:51 | MM ---
Reason for Exam: Screening (asymptomatic). Last screening mammogram was performed 12 month(s) ago. Patient History: Menarche at age 15. First Full-Term at age 21. Postmenopausal. Breast cancer, right, age 73. Patient used Estrogen for 3 years. Patient used Progesterone for 3 years. 05/14/2018, Lumpectomy on the Right side. Bilateral Benign Excisional Biopsy. 05/14/2018, Malignant Core Biopsy on the right side. Maternal cousin had breast cancer, age 60. Mother had breast cancer, age 65. Prior Study Comparison: 04/30/2020 Bilateral Diagnostic Mammogram, [facility]. 04/21/2021 Bilateral Diagnostic Mammogram, [facility]. 10/21/2021 Left Diagnostic Mammogram, [facility]. Tissue Density: There are scattered fibroglandular densities. Findings: Analyzed By CAD. Prior lumpectomy site on the right is evident. No suspicious groups of microcalcifications, spiculated or lobular masses, architectural distortion or other secondary signs of malignancy are mammographically apparent. Overall Assessment: Benign, BI-RAD 2 Management: Screening Mammogram of both breasts in 1 year. A negative mammogram report should not preclude additional follow up of suspicious palpable abnormalities. Patient should continue monthly self breast exam. A clinical breast exam by your physician is recommended on an annual basis and results should be correlated with mammographic findings. Electronically signed and approved by: Weston Garza D.O. Radiologis
== END | disposition home or self-care (01) ==
LOC: RADMAMWWP 09:17
PROVIDERS: ATTEND Internal Medicine Hematology & Oncology
DX: Z12.31 Encounter for screening mammogram for malignant neoplasm of breast (principal); Z78.0 Asymptomatic menopausal state; Z80.3 Family history of malignant neoplasm of breast
CPT/HCPCS: 77063; 77067

== ENCOUNTER → 2022-07-28 | Outpatient (CLI) | payer MEDICARE, BC ==
[2022-07-28 15:21] VITALS: BP 165/83; PULSE 79; RESP 16; TEMP 97.7
--- NOTE | 2022-07-28 15:29 | P.PN ---
Subjective Progress Note Date: 07/28/22 Principal diagnosis: right breast stage I cancer 2017 Gladis is a 77-year-old white female who is status post right breast lumpectomy with sentinel node biopsy in April 2018. The patient had a T1 N0 M0 lesion. She was seen postprocedure by radiation oncology and medical oncology. She is presently on Arimidex. She opted for no radiation therapy. The patient had a bilateral mammogram on [id number] which was BIRADS 2. At this time she just wants to be sure all is well. Family history: 1. Mother: Bilateral breast cancer, liver cancer 2. Maternal first cousin: Breast cancer 3. Maternal first cousin: Lung cancer 4. Daughter: Cervical cancer Hormonal history: Menarche: 15 , 2 miscarriages, breast-fed: Yes, Menopause: 58 control pills: 5 years Hormones: Bioidentical for 1 year Past surgical history: 1. Bilateral carpal tunnel 2. Right breast lumpectomy with sentinel node biopsy 2. Lumbar back surgery Past medical history: 1. Hypertension 2. High cholesterol Social history: Smoking: Negative Alcohol: Negative Drugs: Negative Review of systems: HEENT: Wears glasses, tinnitus, blurred vision Lungs: Negative Heart: Hypertension GI: Negative : Negative Musculoskeletal: Arthritis Neurologic: Negative Integument: Negative Psychiatric: Negative ALLERGIES: Seasonal ALLERGIES Objective - Vital Signs Vital signs: Intake & Output 07/27/22 07/28/22 07/28/22 18:59 06:59 18:59 Weight 76.204 kg - Constitutional General appearance: Present: cooperative - EENT Eyes: Present: EOMI ENT: Present: hearing grossly normal - Neck Neck: Present: normal ROM - Respiratory Respiratory: bilateral: CTA - Cardiovascular Rhythm: regular Heart sounds: normal: S1, S2 - Gastrointestinal General gastrointestinal: Present: soft - Integumentary Integumentary: Present: normal turgor - Musculoskeletal Musculoskeletal: Present: gait normal - Psychiatric Psychiatric: Present: A&O x's 3, appropriate affect, intact judgment & insight - Additional findings Additional findings: breast exam: BRA: 38D; right breast smaller than left right breast: Well-healed scar from prior surgery, multiple positional exam no dominant masses or nodules of concern right ailla: No adenopathy of concern Left breast: multipositional exam no dominate masses or nodules of concern left axilla: No adenopathy of concern right breast smaller than the left breast Assessment and Plan Assessment: Impression: Patient doing well, no evidence of any recurrent breast cancer Plan: Continue Arimidex Bilateral mammogram in April 2023, appointment at that time CC: Dr. Shah
== END ==
LOC: WWCWWP 14:27
PROVIDERS: ATTEND Surgery
DX: Z85.3 Personal history of malignant neoplasm of breast (principal); I10 Essential (primary) hypertension; E78.00 Pure hypercholesterolemia, unspecified; Z88.5 Allergy status to narcotic agent

== ENCOUNTER → 2023-05-03 | Outpatient (CLI) | payer MEDICARE, BC ==
[2023-05-03 10:57] VITALS: BP 189/95; PULSE 62; RESP 18; TEMP 97.5
--- NOTE | 2023-05-03 11:05 | P.PN ---
Subjective Progress Note Date: 05/03/23 Principal diagnosis: right breast stage IA cancer 2018 right breast stage I cancer 2018 Gladis is a 78-year-old white female who is status post right breast lumpectomy with sentinel node biopsy in April 2018. The patient had a T1 N0 M0 lesion. She was seen postprocedure by radiation oncology and medical oncology. She was on Arimidex for 5 years, and has now stopped as per Dr. Mendieta. She opted for no radiation therapy. The patient had a bilateral mammogram on which was BIRADS 2. At this time she just wants to be sure all is well. She is not feeling any new lumps masses or nodules of concern in either breast. Family history: 1. Mother: Bilateral breast cancer, liver cancer 2. Maternal first cousin: Breast cancer 3. Maternal first cousin: Lung cancer 4. Daughter: Cervical cancer Hormonal history: Menarche: 15 , 2 miscarriages, breast-fed: Yes, Menopause: 58 control pills: 5 years Hormones: Bioidentical for 1 year Past surgical history: 1. Bilateral carpal tunnel 2. Right breast lumpectomy with sentinel node biopsy 2. Lumbar back surgery Past medical history: 1. Hypertension 2. High cholesterol Social history: Smoking: Negative Alcohol: Negative Drugs: Negative Review of systems: HEENT: Wears glasses, tinnitus, blurred vision Lungs: Negative Heart: Hypertension GI: Negative : Negative Musculoskeletal: Arthritis Neurologic: Negative Integument: Negative Psychiatric: Negative ALLERGIES: Seasonal ALLERGIES Objective - Vital Signs Vital signs: Intake & Output 05/02/23 05/03/23 05/03/23 18:59 06:59 18:59 Weight 76.204 kg - Constitutional General appearance: Present: cooperative - EENT Eyes: Present: EOMI ENT: Present: hearing grossly normal - Neck Neck: Present: normal ROM - Respiratory Respiratory: bilateral: CTA - Cardiovascular Heart sounds: normal: S1, S2 - Integumentary Integumentary: Present: normal turgor - Musculoskeletal Musculoskeletal: Present: gait normal - Psychiatric Psychiatric: Present: A&O x's 3, appropriate affect, intact judgment & insight - Additional findings Additional findings: breast exam: BRA: 38D; right breast smaller than left right breast: Well-healed scar from prior surgery, multi positional exam no dominant masses or nodules of concern right ailla: No adenopathy of concern Left breast: multi positional exam no dominate masses or nodules of concern left axilla: No adenopathy of concern right breast smaller than the left breast Assessment and Plan Assessment: Impression: Patient doing well, no evidence of any recurrent breast cancer Plan: she is not following with medical oncology any more has finished arimidex for 5 years Bilateral mammogram in April 2024, appointment at that time CC: Dr. Shah
== END ==
LOC: WWCWWP 10:45
PROVIDERS: ATTEND Surgery
DX: E78.00 Pure hypercholesterolemia, unspecified (principal); I10 Essential (primary) hypertension; Z85.3 Personal history of malignant neoplasm of breast; Z80.3 Family history of malignant neoplasm of breast; Z88.5 Allergy status to narcotic agent; Z79.899 Other long term (current) drug therapy

== ENCOUNTER → 2024-05-05 | Outpatient (CLI) | payer MEDICARE, BC ==
--- NOTE | 2024-05-13 12:38 | MM ---
Reason for Exam: Hx of breast cancer, conservation therapy. Last screening mammogram was performed 12 month(s) ago. Patient History: Menarche at age 15. First Full-Term at age 21. Postmenopausal. Breast cancer, right, age 73. Patient used Estrogen for 3 years. Patient used Progesterone for 3 years. 05/14/2018, Lumpectomy on the Right side. Bilateral Benign Excisional Biopsy. 05/14/2018, Malignant Core Biopsy on the right side. Maternal cousin had breast cancer, age 60. Mother had breast cancer, age 65. Tissue Density: There are scattered areas of fibroglandular density. Findings: Analyzed By CAD. Biozorb device right breast related to prior lumpectomy. Areas of asymmetric density on the left are unchanged. No significant change from prior exams. Overall Assessment: Benign, BI-RAD 2 Management: Screening Mammogram of both breasts in 1 year. Results were given to the patient verbally at the time of exam. Patient should continue monthly self-breast exams. A clinical breast exam by your physician is recommended on an annual basis. This exam should not preclude additional follow-up of suspicious palpable abnormalities. [facility], , 05/05/2024 9:19 AM. Electronically signed and approved by: Taniya Zelaya M.D. Radiologist
== END | disposition home or self-care (01) ==
LOC: RADMAMWWP 08:54
PROVIDERS: ATTEND Surgery
CPT/HCPCS: 77062; 77066